=== PATIENT | male | born 1970 | race Two or more races ===

== ENCOUNTER → 2020-05-06 | Emergency (ER) | payer OTHER ==
[~2020-05-06] VITALS: Ht 172.7 cm; Wt 59.9 kg
[~2020-05-06] MED LIST: LISINOPRIL10 MG; SYNTHROID100 MCG
== END | disposition home or self-care (01) ==
LOC: ER 09:23
DX: M27.2 Inflammatory conditions of jaws (principal); R22.1 Localized swelling, mass and lump, neck

== ENCOUNTER → 2020-05-15 | Outpatient (CLI) | payer OTHER | END | disposition home or self-care (01) | LOC: OFIC 805 14:05 | PROVIDERS: ATTEND Otolaryngology Otology & Neurotology | DX: M27.2 Inflammatory conditions of jaws (principal); K11.20 Sialoadenitis, unspecified; K11.8 Other diseases of salivary glands ==